=== PATIENT | male | born 1975 | race African-American/Black ===

== ENCOUNTER 2020-05-27 09:46 | Emergency (ER) | payer OTHER ==
[~2020-05-27] VITALS: Ht 175.3 cm; Wt 88.5 kg
[2020-05-27 11:14] VITALS: BP 178/92
[2020-05-27] MEDS ORDERED: LISINOPRIL5 MG PO (11:17)
[2020-05-27] MEDS ORDERED: NEO-POLYMYXIN-H10 ML RT. EAR (11:26)
[2020-05-27] MEDS ORDERED: FLAGYL500 M1 PO (11:26)
[2020-05-27] MEDS ORDERED: LISINOPRIL-HCT1 EAC1 PO (11:27)
== END 2020-05-27 11:43 | disposition home or self-care (01) ==
LOC: ER 09:46
PROVIDERS: Nurse Practitioner
DX: H60.91 Unspecified otitis externa, right ear (principal); Z20.2 Contact with and (suspected) exposure to infections with a predominantly sexual mode of transmission; Z79.899 Other long term (current) drug therapy